=== PATIENT | male | born 2000 | race Caucasian/White ===

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

== ENCOUNTER 2022-06-15 20:58 | Emergency (ER) | payer OTHER ==
[~2022-06-15 20:58] MED LIST changes: +CYCLOBENZAPRINE5 MG PO; +NAPROSYN EC 50500 MG PO
== END 2022-06-15 21:30 | disposition left against medical advice (07) ==
LOC: ER1 20:58
DX: Z53.21 Procedure and treatment not carried out due to patient leaving prior to being seen by health care provider (principal)